=== PATIENT | male | born 1950 | race Caucasian/White ===

== ENCOUNTER 2021-08-31 09:09 | Emergency (ER) | payer OTHER ==
[~2021-08-31] VITALS: Ht 162.6 cm; Wt 90.7 kg
[2021-08-31 10:26] LABS: BASOPHILS ABSOLUTE AUTO 0.08 K/mm3 (0.00-0.23); BASOPHILS PERCENT AUTO 1 % (0-2); EOSINOPHILS PERCENT AUTO 1 % (0-6); Hematocrit 43.8 % (37.0-53.0); Hemoglobin 14.6 g/dL (13.5-17.5); IMMATURE GRAN ABSOLUTE AUTO 0.05 K/mm3 (0.00-0.10); IMMATURE GRAN PERCENT AUTO 1 % (0-1); LYMPHOCYTES ABSOLUTE AUTO 0.68 K/mm3 (0.84-5.20); LYMPHOCYTES PERCENT AUTO 8 % (21-46); MONOCYTES ABSOLUTE AUTO 0.48 K/mm3 (0.16-1.47); MONOCYTES PERCENT AUTO 6 % (4-13); Mean Corpuscular HGB 28.3 pg (26.0-34.0); Mean Corpuscular HGB Conc 33.3 g/dL (31.5-36.5); Mean Corpuscular Volume 85 fL (80-100); Mean Platelet Volume 10.4 fL (9.1-12.4); NEUTROPHILS ABSOLUTE AUTO 7.11 K/mm3 (1.96-9.15); NEUTROPHILS PERCENT AUTO 84 % (41-73); Platelet Count 194 K/mm3 (150-400); RDW Coefficient Variation 14.4 % (11.7-14.2); RDW Standard Deviation 44.6 fL (35.1-46.3); Red Blood Cell Count 5.15 M/mm3 (4.30-5.90)
[2021-08-31 10:46] LABS: Albumin/Globulin Ratio 0.8 (0.8-1.8); Bilirubin, Total 1.1 mg/dL (0.1-1.0); Bun/Creatinine Ratio 15.2 (12.0-20.0); Calcium, Blood 8.6 mg/dL (8.5-10.1); Creatinine, Blood 1.51 mg/dL (0.60-1.20); Globulin, Blood 3.9 g/dL (2.2-4.0); Potassium, Blood 4.5 mmol/L (3.5-5.5); Total Protein, Blood 6.9 g/dL (6.4-8.2)
[2021-08-31] MEDS ORDERED: Aspir 8181 MG PO (13:42)
[2021-08-31] MEDS ORDERED: ATOR80 PO (13:42)
[2021-08-31] MEDS ORDERED: CLOP75 PO (13:42)
== END 2021-08-31 13:50 | disposition home or self-care (01) ==
LOC: ER 09:09
PROVIDERS: Student in an Organized Health Care Education/Training Program
DX: I63.9 Cerebral infarction, unspecified (principal); Z91.19 Patient's noncompliance with other medical treatment and regimen; R29.91 Unspecified symptoms and signs involving the musculoskeletal system; I12.9 Hypertensive chronic kidney disease with stage 1 through stage 4 chronic kidney disease, or unspecified chronic kidney disease; E11.22 Type 2 diabetes mellitus with diabetic chronic kidney disease; N18.9 Chronic kidney disease, unspecified; F43.10 Post-traumatic stress disorder, unspecified
CPT/HCPCS: 70450; 70496; 70498; 80053; 82947; 85025; 93005; 93010; 99285-25; A9270; Q9967

== ENCOUNTER 2022-09-01 16:11 | Inpatient (IN) | payer OTHER ==
[~2022-09-01] VITALS: Ht 165.1 cm; Wt 81.4 kg
[~2022-09-01 16:11] MED LIST: AMLO5 PO; ATOR80 PO; Aspir 8181 MG PO; CLOP75 PO; FOLI1 PO; GLIP10 PO; LISI10 PO; METO100ER PO; TERA5 PO; VITAMIN D33000 UNIT PO
[2022-09-01 16:34] LABS: BASOPHILS ABSOLUTE AUTO 0.12 K/mm3 (0.00-0.23); BASOPHILS PERCENT AUTO 1 % (0-2); EOSINOPHILS ABSOLUTE AUTO 0.34 K/mm3 (0.00-0.68); EOSINOPHILS PERCENT AUTO 3 % (0-6); Hematocrit 48.1 % (37.0-53.0); Hemoglobin 16.3 g/dL (13.5-17.5); IMMATURE GRAN ABSOLUTE AUTO 0.06 K/mm3 (0.00-0.10); IMMATURE GRAN PERCENT AUTO 1 % (0-1); LYMPHOCYTES ABSOLUTE AUTO 1.11 K/mm3 (0.84-5.20); LYMPHOCYTES PERCENT AUTO 10 % (21-46); MONOCYTES ABSOLUTE AUTO 0.75 K/mm3 (0.16-1.47); MONOCYTES PERCENT AUTO 6 % (4-13); Mean Corpuscular HGB 28.4 pg (26.0-34.0); Mean Corpuscular HGB Conc 33.9 g/dL (31.5-36.5); Mean Corpuscular Volume 84 fL (80-100); Mean Platelet Volume 10.7 fL (9.1-12.4); NEUTROPHILS ABSOLUTE AUTO 9.27 K/mm3 (1.96-9.15); NEUTROPHILS PERCENT AUTO 80 % (41-73); Platelet Count 270 K/mm3 (150-400); RDW Coefficient Variation 13.4 % (11.7-14.2); RDW Standard Deviation 41.3 fL (35.1-46.3); Red Blood Cell Count 5.74 M/mm3 (4.30-5.90); White Blood Cell Count 11.65 K/mm3 (4.00-11.30)
[2022-09-01 16:35] LABS: Calcium, Ionized (POC) 1.11 mmol/L (1.10-1.46); Chloride (POC) 109 mmol/L (98-108); Creatinine (POC) 2.3 mg/dL (0.8-1.3); Glucose (ISTAT POC) 151 mg/dL (70-99); Hemoglobin (POC) 16.7 g/dL (13.5-17.5); Potassium (POC) 3.9 mmol/L (3.5-5.5); Sodium (POC) 142 mmol/L (135-148); Total CO2 (POC) 17 mmol/L (21-32)
[2022-09-01 16:43] LABS: Base Excess Venous -6.3 mmol/L; Bicarbonate Venous 20.4 mmol/L (24.0-30.0); PCO2 Venous 30.8 mmHg (38-42); pH Blood Venous 7.39 (7.34-7.37)
[2022-09-01] MEDS ORDERED: ASPI81CH PO (16:50)
[2022-09-01 16:56] LABS: Ethanol (Alcohol), Blood, Med <3 mg/dL
[2022-09-01 16:59] LABS: Alanine Aminotransfer (ALT/SGP 21 U/L (12-78); Albumin, Blood 3.6 g/dL (3.4-5.0); Albumin/Globulin Ratio 0.9 (0.8-1.8); Alk Phos 86 U/L (50-136); Anion Gap 8 mmol/L (6-16); Aspartate Aminotrans (AST/SGOT 17 U/L (12-37); Bilirubin, Total 0.8 mg/dL (0.1-1.0); Blood Urea Nitrogen 26 mg/dL (8-24); Bun/Creatinine Ratio 12.5 (12.0-20.0); CO2, Blood 18 mmol/L (21-32); Calcium, Blood 9.1 mg/dL (8.5-10.1); Chloride, Blood 113 mmol/L (98-108); Creatinine, Blood 2.08 mg/dL (0.60-1.20); Glomerular Filtration Rate 33 (60-); Glucose, Blood 167 mg/dL (70-99); Potassium, Blood 3.8 mmol/L (3.5-5.5); Sodium, Blood 139 mmol/L (136-145); Total Protein, Blood 7.6 g/dL (6.4-8.2)
[2022-09-01 17:40] LABS: Influenza A, PCR NEGATIVE (NEGATIVE); Influenza B, PCR NEGATIVE (NEGATIVE); Resp Syncytial Virus, PCR NEGATIVE (NEGATIVE); SARS-Cov-2 (COVID-19) PCR, MMC NEGATIVE (NEGATIVE)
[2022-09-01 19:44] LABS: Source, Urine Straight Cath
[2022-09-01 19:48] LABS: Appearance, Urine Clear (Clear); Bilirubin, Urine Neg (Neg); Blood, Urine 5+ (Neg); Color, Urine Yellow (P-Yellow); Glucose Qualitative, Urine Neg (Neg); Ketones, Urine Neg (Neg); Leukocyte Esterase, Urine Neg (Neg); Nitrite, Urine Neg (Neg); Protein, Urine 3+ (Neg); Urobilinogen, Urine 1+ (Normal)
[2022-09-01 20:00] LABS: Amorphous Light (0-Heavy); Bacteria Rare /hpf; Squamous Epithelial Cells Not Seen /hpf (Few); White Blood Cells, Urine 0-2 /hpf (0-5)
[2022-09-01 20:01] LABS: U Amphetamine Screen Not Detected; U Barbituate Screen Not Detected; U Benzodiazapine Screen Not Detected; U Buprenorphine Screen Not Detected; U Cannabinoids Screen Not Detected; U Cocaine Screen Not Detected; U Methadone Screen Not Detected; U Methamphetamine Screen Not Detected; U Opiates Screen Not Detected; U Oxycodone Screen Not Detected; U Phencyclidine Screen Not Detected; U Propoxyphene Screen Not Detected
[2022-09-01 21:30] VITALS: BP 193/86
[2022-09-01 22:14] LABS: CHOL/HDL RATIO 5.1; Cholesterol 108 mg/dL (50-200); HDL Cholesterol 21 mg/dL (>39); LDL/HDL RATIO 2.1; Low Density Lipoprotein Chol 43 mg/dL (0-110); Triglycerides 218 mg/dL (30-160); Very Low Density Lipoprot Chol 43 mg/dL (6-32)
[2022-09-01 23:30] VITALS: BP 177/65
[2022-09-02 00:02] LABS: Anti-Xa UFH, PHA Monitoring <0.10 IU/mL; International Normalized Ratio 0.98; Prothrombin Time Results 10.3 Sec (9.7-11.5)
[2022-09-02 02:17] VITALS: BP 108/64
[2022-09-02 03:30] LABS: BASOPHILS PERCENT AUTO 1 % (0-2); EOSINOPHILS ABSOLUTE AUTO 0.32 K/mm3 (0.00-0.68); EOSINOPHILS PERCENT AUTO 3 % (0-6); Hematocrit 41.3 % (37.0-53.0); Hemoglobin 13.6 g/dL (13.5-17.5); IMMATURE GRAN ABSOLUTE AUTO 0.05 K/mm3 (0.00-0.10); IMMATURE GRAN PERCENT AUTO 0 % (0-1); LYMPHOCYTES PERCENT AUTO 20 % (21-46); MONOCYTES ABSOLUTE AUTO 0.95 K/mm3 (0.16-1.47); MONOCYTES PERCENT AUTO 9 % (4-13); Mean Corpuscular HGB 28.4 pg (26.0-34.0); Mean Corpuscular HGB Conc 32.9 g/dL (31.5-36.5); Mean Corpuscular Volume 86 fL (80-100); Mean Platelet Volume 10.6 fL (9.1-12.4); NEUTROPHILS ABSOLUTE AUTO 7.51 K/mm3 (1.96-9.15); NEUTROPHILS PERCENT AUTO 68 % (41-73); Platelet Count 204 K/mm3 (150-400); RDW Coefficient Variation 13.5 % (11.7-14.2); RDW Standard Deviation 42.5 fL (35.1-46.3); Red Blood Cell Count 4.79 M/mm3 (4.30-5.90); White Blood Cell Count 11.13 K/mm3 (4.00-11.30)
[2022-09-02 03:51] LABS: Magnesium, Blood 2.3 mg/dL (1.6-2.4)
[2022-09-02 03:52] LABS: Albumin, Blood 2.8 g/dL (3.4-5.0); Albumin/Globulin Ratio 0.9 (0.8-1.8); Bilirubin, Total 0.7 mg/dL (0.1-1.0); Bun/Creatinine Ratio 12.9 (12.0-20.0); Calcium, Blood 7.8 mg/dL (8.5-10.1); Creatinine, Blood 1.94 mg/dL (0.60-1.20); Globulin, Blood 3.2 g/dL (2.2-4.0); Potassium, Blood 3.5 mmol/L (3.5-5.5)
--- NOTE | 2022-09-02 07:24 | NUR ---
SHIFT SUMMARY PT A&0 X4. PT ARRIVED TO PCU AT 2126. PT ABLE TO TRANSFER SELF TO HOSPITAL BED. PT SISTER AND DAUGHTER AT BEDSIDE. VSS. PT DENIES CP OR PRESSURE. DENIES SOB, LIGHTHEADNESS OR DIZZINESS. PT SBA/A PERSON ASSIST USING URINAL AT BEDSIDE. PT SLEPT WELL THROUGHOUT THE NIGHT. HEPARIN INFUSING PER EMAR. WILL UPDATE ONCOMING RN
[2022-09-02 07:33] VITALS: BP 124/76
[2022-09-02 07:54] LABS: CHOL/HDL RATIO 4.8; Cholesterol 96 mg/dL (50-200); HDL Cholesterol 20 mg/dL (>39); LDL/HDL RATIO 2.6; Low Density Lipoprotein Chol 52 mg/dL (0-110); Triglycerides 119 mg/dL (30-160); Very Low Density Lipoprot Chol 23 mg/dL (6-32)
--- NOTE | 2022-09-02 09:31 | NUR ---
AM NOTE: RECEIVED REPORT FROM THE [facility] SHIFT RN. PT ALERT AND ORIENTED X4. ABLE TO ANSWER QUESTIONS APPROPRIATELY. COOPERATIVE WITH ALL CARE. SBP 120'S, HR IN THE 60'S-70'S. NO COMPLAINTS OF CHEST PAIN OR PRESSURE. ABLE TO AMBULATE TO THE CHAIR WITH MINIMAL ASSIST, NO C/O OF LIGHTHEADNESS OR DIZZINESS. HEPARIN GTT AT 15 U/KG/HR WHICH WAS VERIFIED BY [facility] SHIFT RN DOMI AND DAY SHIFT RN DINORA. PT WILL BE KEPT NPO UNTIL CARDIOLOGY CONSULT THIS AM. PT METOPROLOL DOSE DECREASED TO 50 MG FROM [address] DIAZ. CALL LIGHT IN REACH, WILL CONTINUE TO MONITOR T/O THE SHIFT.
[2022-09-02 11:08] VITALS: BP 113/78
[2022-09-02 16:15] VITALS: BP 112/75
--- NOTE | 2022-09-02 18:02 | NUR ---
SHIFT SUMMARY: NO ACUTE EVENTS T/O THE SHIFT. DR. VASQUEZ CAME BY TO EVALUATE THE PT, PLAN TO REEVALUATE TOMORROW FOR POSSIBLE ANGIOGRAM. PT ALLOWED TO EAT AND WILL BE NPO AT MIDNIGHT. PT ABLE TO AMBULATE TO THE BATHROOM WITH MINIMAL ASSIST AND NO C/O DIZZINESS OR LIGHTHEADNESS. PT DENIES ANY CHEST PAIN OR PRESSURE T/O THE SHIFT. PT HEPARIN GTT INFUSING AT 15 U/KG/HR. NORMAL SALINE INFUSING AT 100 ML/HR. PT FAMILY AT THE BEDSIDE AND AWARE OF PLAN FOR TOMORROW. WILL CONTINUE TO MONITOR AND GIVE REPORT TO NOC SHIFT RN.
[2022-09-02 20:00] VITALS: BP 119/82
--- NOTE | 2022-09-02 21:47 | NUR ---
ASSUMPTION OF CARE THIS RN ASSUMED CARE OF PT AT 1900, REPORT FROM DINORA, RN AND GATE SUPERVISOR. PT LYING IN BED, AWAKE WATCHING TV. PT A&O X4, INTERACTING APPROPRIATELY AND COOPERATIVE WITH CARE. PT STRUGGLES TO REMEMBER THE YEAR, BUT EASILY REORIENTED. VSS. PT REMAINS ON RA, SPO2 98%. PT DENIES CP OR PRESSURE, DENIES SOB, LIGHTHEADNESS OR DIZZINESS. DENIES N/V. HEPARIN GTT INFUSING PER EMAR. NS INFUSING AT 100 MLS/HR PER EMAR. LUNG SOUNDS CLEAR. PT HAS CONTINOUS DRY COUGH, THAT HE REPORTS IS "A NORMAL, SMOKER'S COUGH". PT REPOSITIONS SELF INDEPENDENTLY. PT USED URINAL AT THIS TIME W/SBA FOR SAFETY. PT MADE AWARE OF PLAN FOR PROVIDER TO ROUND IN THE AM AND REASSESS THE SITUATION AND PLAN OF CARE. PT REMINDED THAT HE WILL BE NPO AT 0000. PT DENIES ANY OTHER NEEDS AT THIS TIME AND IS COMFOTABLE. NEPHEW IN TO VISIT AND AT BEDSIDE. CALL LIGHT IN REACH
[2022-09-03] VITALS: BP 132/91
[2022-09-03 04:14] LABS: Bun/Creatinine Ratio 13.2 (12.0-20.0); Calcium, Blood 7.9 mg/dL (8.5-10.1); Creatinine, Blood 1.59 mg/dL (0.60-1.20); Potassium, Blood 3.8 mmol/L (3.5-5.5)
[2022-09-03 04:15] VITALS: BP 142/76
--- NOTE | 2022-09-03 06:00 | NUR ---
SHIFT SUMMARY PT REMAINS A&O X4. VSS THROUGHOUT SHIFT. NO ACUTE CHANGES THROUGHOUT SHIFT AND NO CHANGES FROM ASSUMPTION OF CARE NOTE. PT SLEPT WELL THROUGHOUT SHIFT. PT CONTINUES TO USE URINAL AT BEDSIDE W/SBA; VOIDING WELL. PT REPOSITIONS SELF. HEPARIN INFUSING AT 15 U/KG/HR. NS INFUSING PER EMAR; PT SO FAR RECEIVED 2 OF THE [address] VASQUEZ INTO SEE PT LAST NIGHT. REMINDS PT THAT WILL REASSESS CARE PLAN AND POSSIBILITY OF ANGIO IN THE AM. PT TO BE NPO AT BREAKFAST PER DR. VASQUEZ. CALL LIGHT IN REACH.
[2022-09-03 07:57] VITALS: BP 121/93
--- NOTE | 2022-09-03 09:45 | NUR ---
AM NOTE: PT ALERT AND ORIENTED X4, ABLE TO STATE NEEDS AND ANSWER QUESTIONS APPROPRIATELY. PT NPO SINCE THIS MORNING WITH PLANS TO GO FOR ANGIOGRAM THIS AFTERNOON WITH DR. VASQUEZ. VITAL SIGNS STABLE, SBP 120'S, HRR 50'S-60'S. NO C/O CHEST PAIN OR PRESSURE. PT DENIES SHORTNESS OF BREATHE OR DIZZINESS. PT UP IN THE CHAIR AND ABLE TO AMBULATE TO THE BATHROOM WITH A MINIMAL ASSIST. PT SISTER AT THE BEDSIDE AND MADE AWARE OF PLAN. PT HAS HEPARIN GTT INFUSING AT 15 U/KG/HR AND NORMAL SALINE INFUSING AT 100 ML/HR. PT CALL LIGHT IN REACH. WILL CONTINUE TO MONITOR T/O THE SHIFT.
[2022-09-03 11:11] VITALS: BP 139/88
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
[2022-09-03 16:37] VITALS: BP 129/86
--- NOTE | 2022-09-03 18:12 | NUR ---
SHIFT JACE: PT TO SECONDARY SPANISH TEACHER FOR ANGIOGRAM AT 1300. PT RECEIVED A STENT TO THE MID LAD AND A STENT TO THE PROXIMAL LAD. PT RETURNED AT 1636 WITH A TR BAND IN PLACE WITH 15 ML OF AIR IN THE BALLOON, WHICH IS STILL INFLATED AT THIS TIME. SITE LOOKS CLEAN, WITH MINIMAL OOZING/BLEEDING. ARM BOARD IN PLACE.NO C/O PAIN AT THE SITE.PT DENIES CHEST PAIN OR PRESSURE. PT SBP IN THE 130'S-140'S, HRR IN THE 60'S-70'S. HEPARIN GTT D/C PER DR. VASQUEZ, NORMAL SALINE INFUSING AT 125 ML/HR. PT EDUCATED ON NOT USING HIS RIGHT HAND. PT ABLE TO EAT A CARDIAC/ HEART HEALTHY DIET. SISTER AT THE BEDSIDE AND INFORMED OF INTERVENTION THAT WAS DONE IN SECONDARY SPANISH TEACHER. WILL CONTINUE TO MONITOR AND REPORT OFF TO THE [facility] SHIFT RN.
[2022-09-03 19:52] VITALS: BP 188/84
--- NOTE | 2022-09-03 21:58 | NUR ---
ASSUMPTION OF CARE THIS RN ASSUMED CARE OF PT AT 1900, REPORT FROM ALLISON FARIAS AND CHUTE BOSS VIOLETA. PT AWAKE IN ROOM, WATCHING TV. VSS; ALTHOUGH SBP IS ELEVATED AT 188. 2100 MEDICATIONS FOR BLOOD PRESSURE ADMINISTERED. PT DENIES CP OR PRESSURE, DENIES LIGHTHEADNESS OR DIZZINESS. PT DENIES HEADACHE. PT APPEARS MILDLY FLUSHED, PT SOB WITH DYSPNEA OR MINIMAL MOVEMENT. PT REPORTS FEELING HE IS MORE SHORT OF BREATH THAN PREVIOUS WHEN MOVING AROUND. LUNG SOUNDS CLEAR IN UPPER LOBES, CLEAR BUT DIMINISHED IN LOWER LOBES. SPO2 97% ON RA. R RADIAL SITE WNL; NO HEMATOMA OR DISCOLORATION. PT DENIES PAIN, NUMBNESS OR TINGLING. WILL CONTINUE TO RECOVER SITE. ARMBOARD IN PLACE. PT UP TO USE URINAL AT THIS TIME AND REPOSITIONED BACK INTO BED. PT DENIES ANY OTHER NEEDS AT THIS TIME. CALL LIGHT IN REACH
[2022-09-04] VITALS (13 sets, daily range): BP systolic 138–197; BP diastolic 51–75
[2022-09-04 03:42] LABS: BASOPHILS ABSOLUTE AUTO 0.06 K/mm3 (0.00-0.23); BASOPHILS PERCENT AUTO 1 % (0-2); EOSINOPHILS ABSOLUTE AUTO 0.26 K/mm3 (0.00-0.68); EOSINOPHILS PERCENT AUTO 3 % (0-6); Hematocrit 41.8 % (37.0-53.0); Hemoglobin 13.9 g/dL (13.5-17.5); IMMATURE GRAN ABSOLUTE AUTO 0.04 K/mm3 (0.00-0.10); IMMATURE GRAN PERCENT AUTO 0 % (0-1); LYMPHOCYTES ABSOLUTE AUTO 0.97 K/mm3 (0.84-5.20); LYMPHOCYTES PERCENT AUTO 10 % (21-46); MONOCYTES ABSOLUTE AUTO 0.89 K/mm3 (0.16-1.47); MONOCYTES PERCENT AUTO 9 % (4-13); Mean Corpuscular HGB 28.1 pg (26.0-34.0); Mean Corpuscular HGB Conc 33.3 g/dL (31.5-36.5); Mean Corpuscular Volume 85 fL (80-100); Mean Platelet Volume 10.8 fL (9.1-12.4); NEUTROPHILS ABSOLUTE AUTO 7.78 K/mm3 (1.96-9.15); NEUTROPHILS PERCENT AUTO 78 % (41-73); Platelet Count 206 K/mm3 (150-400); RDW Coefficient Variation 13.2 % (11.7-14.2); RDW Standard Deviation 40.7 fL (35.1-46.3); Red Blood Cell Count 4.94 M/mm3 (4.30-5.90)
[2022-09-04 03:57] LABS: Bun/Creatinine Ratio 14.4 (12.0-20.0); Calcium, Blood 8.4 mg/dL (8.5-10.1); Creatinine, Blood 1.53 mg/dL (0.60-1.20); Potassium, Blood 3.5 mmol/L (3.5-5.5)
--- NOTE | 2022-09-04 06:02 | NUR ---
SHIFT SUMMARY RT REMAINS A&O X4. VSS; ALTHOUGH SBP STILL ELEVATED IN 180'S. 2100 MEDICATIONS GIVEN, WITH LITTLE IMPROVEMENT IN BP. LABETALOL 10MG IV ADMINISTERED AGAIN WITH LITTLE IMPROVEMENT IN BP. PT DENIES HEADACHE OR OTHER SX. PT DENIES CP OR PRESSURE. PT STILL HAVING DYSPNEA W/EXERTION. SPO2 REMAINS >96%. PT VOIDING WELL USING URINAL AT BESIDE, SBA. R RADIAL SITE FULLY RECOVERED; TR BAND REMOVED AND TEGADERM DRESSING IN PLACE. SITE WNL, NO CHANGES. NO HEMATOMA, OOZING, DISCOLORATION, CAP REFILL WNL. PT DENIES PAIN, NUMBNESS OR TINGLING. ARMBOARD IN PLACE. PT RECEIVED 500 MLS OF NS PER PROVIDER ORDER POST ANGIO. NO ACUTE CHANGES THIS SHIFT. CALL LIGHT IN REACH AND PT CURRENTLY RESTING.
--- NOTE | 2022-09-04 14:20 | NUR ---
PT A&OX4. PLEASANT AND COOPERATIVE WITH CARE. HIS SISTER WHO CARES FOR HIM HAS BEEN IN THE ROOM WITH HIM FOR THE MAJORITY OF THE DAY. SMALL LAC ABOVE L EYE APPEARS TO BE HEALING, CLEANED AND BANDAID CHANGED THIS MORNING. LUNG SOUNDS COURSE BILATERAL UPPER SCHMIDT AND DIMINISHED IN LOWER. DR. VASQUEZ SPOKE WITH PT REGARDING QUITING SMOKING, PT STATED HE IS NOT READY TO QUIT. PT UP TO BATHROOM WITH STAND BY ASSIST. PT WALKED WITH PT TODAY IN HALLS. PT DENIES CHEST PAIN/PRESSURE. PT SOB PERIODICALLY AT REST AND WITH EXERTION. ANGIO SITE WNL WITH TRANSPARENT DRESSING C/D/I. DR. DIAZ JUST VISITED WITH PT FOR SECOND TIME TODAY. ORDERES FOR NICOTINE PATCH. TELE SR IN 60'S. BP RUNNING HIGH EARLY IN SHIFT, SBP 180'S. PRN HYDRALAZINE GIVEN & NEW ORDER FOR HYDRALAZINE PO, BP CAME DOWN TO SBP 130'S.
--- NOTE | 2022-09-04 16:22 | NUR ---
1600 BP ELEVATED. CALL PLACED TO DR. VASQUEZ, WAITING FOR REPLY.
--- NOTE | 2022-09-04 17:17 | NUR ---
PT EATING DINNER AND VISITING WITH SISTER AND ANOTHER FAMILY MEMBER.
--- NOTE | 2022-09-04 17:31 | NUR ---
PT'S BP CAME DOWN TO 138/65, NO PRN BP MEDICATION NEEDED AT THIS TIME. BLOOD CULTURE CAME BACK NEGATIVE. PT HAVING INTERMITTENT SHAKING OF BILATERAL LOWER EXTREMITIES. BLOOD SUGAR WNL, VITAL SIGNS STABLE, DENIES DIZZINESS/NUMBNESS/TINGLING/OR PAIN WITH SHAKINESS. PT STATED HE NORMALLY HAS INTERMITTENT SHAKINESS, ALTHOUGH SISTER AT BEDSIDE STATED SHAKINESS IS NEW. PT CONTINUES TO DENY CHEST PAIN/PRESSURE. PATIENT ATE ABOUT 95% OF DINNER. PT'S SISTER AND OTHER FAMILY MEMBER LEFT FOR THE NIGHT. NO ACUTE CHANGES. SEE PREVIOUS NOTE. PT RESTING IN BED WATCHING TV WITH CALL LIGHT WITHIN REACH.
--- NOTE | 2022-09-04 18:07 | NUR ---
THIS RN HAS REVIEWED AND AGREES WITH ALL ELECTRICAL POWER STATION TECHNICIAN DOCUMENTATION.
[2022-09-05 03:27] VITALS: BP 152/58
[2022-09-05 04:25] LABS: Bun/Creatinine Ratio 15.9 (12.0-20.0); Calcium, Blood 8.7 mg/dL (8.5-10.1); Creatinine, Blood 1.82 mg/dL (0.60-1.20); Potassium, Blood 3.5 mmol/L (3.5-5.5)
--- NOTE | 2022-09-05 05:44 | NUR ---
SHIFT SUMMARY PT IS A&OX4 AND HIS AFFECT HAS BEEN VERY FLAT. HE HAS BEEN COOPERATIVE W/ CARE. HE IS A 1P SBA TO THE RESTROOM, AND IS CONT OF URINE. HE HAS DENIES ANY ANGINA, SOB, N/V/D, AND PAIN. PT HAD AN ANGIO 09/03 AND THE RIGHT RADIAL SITE HAS A CHG TEG INTACT. NO SIGNS OF HEMATOMA, BLEEDING, OR N/T. PT HAS BEEN HYPERTENSIVE THIS SHIFT AND MEDICATIONS HAVE BEEN GIVEN PER EMAR. NO ACUTE EVENTS. SEE NOTES FOR ANY UPDATES.
[2022-09-05 08:21] VITALS: BP 138/69
[2022-09-05 11:08] VITALS: BP 156/59
[2022-09-05] MEDS ORDERED: ASPI81CH PO (13:22)
[2022-09-05] MEDS ORDERED: FURO20 PO (13:25)
[2022-09-05] MEDS ORDERED: DOXA2 PO (13:25)
[2022-09-05] MEDS ORDERED: TICA90TA PO (13:26)
[2022-09-05] MEDS ORDERED: SPIR25 PO (13:26)
[2022-09-05] MEDS ORDERED: Nicoderm Cq1 EAC1 TOP (13:34)
[2022-09-05] MEDS ORDERED: Isosorbide Mono30 MG PO (13:59)
--- NOTE | 2022-09-05 14:09 | NUR ---
DISCHARGE HOME W/ HH PT A&O X4. VSS. SPO2 > 92% ON RA. MONITOR SHOWING SB-SR, HR 50s-60s. W/ ORDERS FOR DISCHARGE HOME W/ HH. DISCHARGE INSTRUCTIONS REVIEWED W/ PT. PIVs REMOVED. PT TAKEN OUT BY WHEELCHAIR W/ BELONGINGS & FAMILY @ APPROX 1400.
== END 2022-09-05 14:00 | disposition home health service (06) | DRG 247 ==
LOC: ER 16:11 → MEDS 16:12 → ER 16:12 → MEDS 16:12 → ER 21:19 → PCU 21:19
PROVIDERS: Emergency Medicine; Family Medicine; Internal Medicine; Student in an Organized Health Care Education/Training Program; ADMIT Internal Medicine
PROC: 027035Z Dilation of Coronary Artery, One Artery with Two Drug-eluting Intraluminal Devices, Percutaneous Approach (ICD-10-PCS; principal; 2022-09-03)
PROC: 4A023N7 Measurement of Cardiac Sampling and Pressure, Left Heart, Percutaneous Approach (ICD-10-PCS; 2022-09-03)
PROC: B211YZZ Fluoroscopy of Multiple Coronary Arteries using Other Contrast (ICD-10-PCS; 2022-09-03)
PROC: B240ZZ3 Ultrasonography of Single Coronary Artery, Intravascular (ICD-10-PCS; 2022-09-03)
DX: I21.4 Non-ST elevation (NSTEMI) myocardial infarction (principal); E87.20 Acidosis, unspecified; N17.9 Acute kidney failure, unspecified; R78.81 Bacteremia; I24.9 Acute ischemic heart disease, unspecified; F17.210 Nicotine dependence, cigarettes, uncomplicated; N18.9 Chronic kidney disease, unspecified; F43.10 Post-traumatic stress disorder, unspecified; E11.22 Type 2 diabetes mellitus with diabetic chronic kidney disease; I12.9 Hypertensive chronic kidney disease with stage 1 through stage 4 chronic kidney disease, or unspecified chronic kidney disease; E11.51 Type 2 diabetes mellitus with diabetic peripheral angiopathy without gangrene; N40.1 Benign prostatic hyperplasia with lower urinary tract symptoms; R33.8 Other retention of urine; I25.10 Atherosclerotic heart disease of native coronary artery without angina pectoris; I25.5 Ischemic cardiomyopathy; I65.21 Occlusion and stenosis of right carotid artery; I51.89 Other ill-defined heart diseases; E86.0 Dehydration; Z20.822 Contact with and (suspected) exposure to COVID-19; Z98.890 Other specified postprocedural states; Z71.6 Tobacco abuse counseling; Z79.899 Other long term (current) drug therapy; Z79.82 Long term (current) use of aspirin; W28.XXXA Contact with powered lawn mower, initial encounter; Z86.73 Personal history of transient ischemic attack (TIA), and cerebral infarction without residual deficits; Z79.02 Long term (current) use of antithrombotics/antiplatelets
CPT/HCPCS: 0241U; 36415; 37252; 70450; 71045; 76937; 80047; 80048; 80053; 80061; 81001; 82550; 82607; 82746; 82803; 82947; 83036; 83605; 83735; 83880; 84443; 84484; 85014; 85025; 85347; 85520; 85610; 85730; 87040; 92978; 93005; 93010; 93306; 93458; 93880; 94762; 96361; 96374; 97116; 97161; 97166; 97530; 97535; 99152; 99153; 99285-25; A9270; C1725; C1753; C1769; C1874; C1887; C1894; C9600; G0480; J0360; J1644; J2250; J2405; J3010; J3370; J7030; J7040; J7050; J7120; Q9967

== ENCOUNTER 2023-03-03 14:26 | Emergency (ER) | payer OTHER ==
[~2023-03-03] VITALS: Ht 165.1 cm; Wt 86.2 kg
[~2023-03-03 14:26] MED LIST changes: +ASPI81CH PO; +DOXA2 PO; +FURO20 PO; +Isosorbide Mono30 MG PO; +Nicoderm Cq1 EAC1 TOP; +SPIR25 PO; +TICA90TA PO
[2023-03-03 14:54] LABS: BASOPHILS ABSOLUTE AUTO 0.09 K/mm3 (0.00-0.23); BASOPHILS PERCENT AUTO 1 % (0-2); EOSINOPHILS PERCENT AUTO 3 % (0-6); Hematocrit 45.7 % (37.0-53.0); Hemoglobin 14.9 g/dL (13.5-17.5); IMMATURE GRAN ABSOLUTE AUTO 0.04 K/mm3 (0.00-0.10); IMMATURE GRAN PERCENT AUTO 0 % (0-1); LYMPHOCYTES PERCENT AUTO 14 % (21-46); MONOCYTES ABSOLUTE AUTO 0.69 K/mm3 (0.16-1.47); MONOCYTES PERCENT AUTO 6 % (4-13); Mean Corpuscular HGB 28.7 pg (26.0-34.0); Mean Corpuscular HGB Conc 32.6 g/dL (31.5-36.5); Mean Corpuscular Volume 88 fL (80-100); Mean Platelet Volume 11.3 fL (9.1-12.4); NEUTROPHILS ABSOLUTE AUTO 8.89 K/mm3 (1.96-9.15); NEUTROPHILS PERCENT AUTO 76 % (41-73); Platelet Count 244 K/mm3 (150-400); RDW Coefficient Variation 13.8 % (11.7-14.2); RDW Standard Deviation 44.7 fL (35.1-46.3); White Blood Cell Count 11.71 K/mm3 (4.00-11.30)
[2023-03-03 15:04] LABS: Albumin, Blood 3.2 g/dL (3.4-5.0); Albumin/Globulin Ratio 0.8 (0.8-1.8); Bilirubin, Total 0.6 mg/dL (0.1-1.0); Bun/Creatinine Ratio 11.6 (12.0-20.0); Calcium, Blood 8.5 mg/dL (8.5-10.1); Creatinine, Blood 1.55 mg/dL (0.60-1.20); Potassium, Blood 3.7 mmol/L (3.5-5.5); Total Protein, Blood 7.2 g/dL (6.4-8.2)
[2023-03-03 15:48] LABS: Source, Urine Clean Catch
[2023-03-03 15:57] LABS: Appearance, Urine Clear (Clear); Bilirubin, Urine Neg (Neg); Blood, Urine Neg (Neg); Color, Urine Yellow (P-Yellow); Glucose Qualitative, Urine Neg (Neg); Ketones, Urine Neg (Neg); Leukocyte Esterase, Urine Neg (Neg); Nitrite, Urine Neg (Neg); Protein, Urine 3+ (Neg); Specific Gravity, Urine 1.015 (1.003-1.022); Urobilinogen, Urine NORM (Normal); pH, Urine 6.5 (5.0-8.0)
[2023-03-03 16:13] LABS: Bacteria Few /hpf; Squamous Epithelial Cells Rare /hpf (Few); White Blood Cells, Urine 0-2 /hpf (0-5)
[2023-03-03] MEDS ORDERED: Miralax17 GM PO (16:23)
[2023-03-03] MEDS ORDERED: ONDA4ODT SL (16:23)
[2023-03-03 16:30] VITALS: BP 208/77
== END 2023-03-03 16:48 | disposition home or self-care (01) ==
LOC: ER 14:26
PROVIDERS: Emergency Medicine
DX: R10.30 Lower abdominal pain, unspecified (principal); Z63.4 Disappearance and death of family member; I12.9 Hypertensive chronic kidney disease with stage 1 through stage 4 chronic kidney disease, or unspecified chronic kidney disease; N18.9 Chronic kidney disease, unspecified; E11.22 Type 2 diabetes mellitus with diabetic chronic kidney disease; E11.51 Type 2 diabetes mellitus with diabetic peripheral angiopathy without gangrene; F17.210 Nicotine dependence, cigarettes, uncomplicated; Z79.899 Other long term (current) drug therapy; Z79.82 Long term (current) use of aspirin
CPT/HCPCS: 74177; 80053; 81001; 83690; 85025; 96360; 99284-25; A9270; J7030; Q9967